=== PATIENT | female | born 1955 | race Caucasian/White ===

== ENCOUNTER 2021-01-07 14:43 | Emergency (ER) | payer MEDICARE, SELFPAY ==
[2021-01-07 14:49] VITALS: BP 147/69; PULSE 83; RESP 18; TEMP 36.7; O2SAT 96; BMI 26.9
[2021-01-07] MEDS: Famotidine/PF 20 MG/2 ML VIAL IVPUSH (15:28)
[2021-01-07] MEDS: diphenhydrAMINE HCL 50 MG/ML VIAL IVPUSH (15:28)
[2021-01-07] MEDS: methylPREDNISolone Sod Succ 125 MG/2 ML VIAL IVPUSH (15:28)
--- NOTE | 2021-01-07 16:46 | ED_ITS ---
HPI - Allergic Reaction General Chief complaint: Allergic Reaction Stated complaint: BEE STING ALLERGIC Source: patient Mode of arrival: ambulatory Limitations: no limitations History of Present Illness HPI narrative: patient presents to ED for allergic reaction to bee stings. Patient states she was stung by bee around 02:00 o'clock which caused her to break out in rash the back and upper extremities. Patient denies any sensation of throat closing, itchy throat, tongue swelling, facial swelling, lip swelling, chest pain, or shortness of breath. Related Data Previous Rx's Medication Instructions Recorded diphenhydramine HCl [Benadryl] 25 mg PO TID PRN #30 cap 01/07/21 famotidine [Pepcid] 20 mg PO BID 10 Days #20 tab 01/07/21 prednisone 40 mg PO DAILY 5 Days #10 tab 01/07/21 Allergies Allergy/AdvReac Type Severity Reaction Status Date / Time bee pollen [bee stings] Allergy Anaphylaxis Verified 01/07/21 14:49 Review of Systems Constitutional: Constitutional: Reports as per HPI, Reports no additional constitutional complaints and Reports anorexia Eyes: Eyes: Reports as per HPI and Reports no additional eye complaints ENT: Reports system reviewed and no additional complaints, except as documented and Reports as per HPI Cardiovascular: Cardiovascular: Reports as per HPI and Reports no additional cardiovascular complaints Respiratory: Respiratory: Reports as per HPI and Reports no additional respiratory complaints Genitourinary: Genitourinary: Reports no additional female genitourinary complaints and Reports as per HPI Musculoskeletal: Musculoskeletal: Reports no additional musculoskeletal complaints and Reports as per HPI Comments: Itchy rash Neurologic: Reports system reviewed and no additional complaints, except as documented and Reports as per HPI Psychiatric: Psychiatric: Reports no additional psychiatric complaints and Reports as per HPI [facility] Past Medical History Medical History (Updated 01/07/21 @ 16:58 by LYNDA Munoz) Age related osteoporosis Arthritis Depression Gallbladder disease GERD (gastroesophageal reflux disease) Polycystic ovarian disease Surgical History (Updated 01/07/21 @ 14:55 by Hope Winn RN) H/O adenoidectomy H/O: hysterectomy S/P appendectomy Social History Social History Alcohol intake: never Smoked in Last 30 Days: No Use of substances other than those prescribed or required for medical reasons: No Advance Directives: No Advance Directives Information Provided: No Physical Exam Vital Signs: Vital Signs: Last Vital Signs Temp 98.0 F 01/07/21 14:49 Pulse 83 01/07/21 14:49 Resp 18 01/07/21 14:49 BP 147/69 H 01/07/21 14:49 Pulse Ox 96 01/07/21 14:49 Body Mass Index 26.9 Const: General: cooperative, healthy appearing, comfortable, no acute distress, well developed, alert and awake Orientation/consciousness: patient oriented x3 HENMT: Other: negative for swelling of lips, tongue, uvula, eyes, or face. Patient is speaking in full sentences. negative for stridor. Negative for rash on face Head: Yes normal to inspection, Yes No palpable skull fracture present, Yes normocephalic, Yes atraumatic and No abrasion Eyes: General: appearance normal, both eyes and all related structures Neck: Neck: Yes normal visual inspection, Yes full ROM, Yes no lymphadenopathy, Yes no meningeal signs, Yes trachea midline, Yes supple and No tender Chest: Chest palpation & inspection: normal inspection of the chest and normal palpation of entire chest wall Resp: Effort & Inspection: normal respiratory effort and able to speak in complete sentences Auscultation: clear to auscultation bilaterally Cardio: Jugular venous distension: no JVD Heart sounds: S1 normal heart sound present and S2 normal heart sound present GI: Inspection: Yes normal to inspection and No abdominal wall ecchymosis Palpation (GI): Soft to palpation, not firm, nontender, no guarding and not rigid : General: No CVA tenderness and Yes no CVA tenderness Back/Spine/Pelvis: Back: no CVA tenderness, No CVA tenderness and No back tenderness Skin: Other: hives on upper extremities. Hives on back Neuro: General: patient oriented x3, gait normal, no meningeal signs and CN's II-XI intact bilaterally Cranial nerves: Yes CN's II-XII intact bilaterally Extrem: General: Yes normal to inspection and Yes full ROM Psych: Appearance: grossly normal, well kempt and not disheveled Course Course Course Narrative: patient has allergic reaction. Reevaluation(s) Reevaluation #1: Patient given Benadryl, Solu-Medrol, and Pepcid. Patient was observed in the ER for 2 hours and 13 minutes. Hives resolving Time: 16:57 MDM - Allergic Reaction MDM Narrative Medical decision making narrative: allergic reaction Discharge Plan Discharge Clinical Impression: Allergic reaction Patient Disposition: Home, Self-Care Instructions: General Allergic Reaction (ED) Additional Instructions: return to the ED immediately for any swelling of the lips /tongue /uvula, shortness of breath, sensation of throat closing, shortness of breath, chest pain, worsening rash, fever, chills, or any other concerning symptoms. please follow-up with your primary care provider Prescriptions: New famotidine [Pepcid] 20 mg tablet 20 mg PO BID 10 Days Qty: 20 RF: 0 prednisone 20 mg tablet 40 mg PO DAILY 5 Days Qty: 10 RF: 0 diphenhydramine HCl [Benadryl] 25 mg capsule 25 mg PO TID PRN (Reason: allergic reaction) Qty: 30 RF: 0 Print Language: Lao
== END 2021-01-07 17:06 | disposition home or self-care (01) ==
PROVIDERS: Emergency Provider Emergency Medicine
DX: T63.441A Toxic effect of venom of bees, accidental (unintentional), initial encounter (principal); Y92.9 Unspecified place or not applicable
CPT/HCPCS: 96374; 96375; 99283; 99284; J1200; J2930